=== PATIENT | male | born 1995 ===

== ENCOUNTER 2018-02-04 05:29 | Inpatient (IN) ==
--- NOTE | 2018-02-04 05:37 | Emergency Department Note ---
Disposition Clinical Impression: Suicidal thoughts Disposition: Still a Patient Condition: Good Forms: ED Satisfaction Letter Psych HPI - General Chief Complaint: ED Psychiatric Symptoms Stated Complaint: SI Source: patient, EMS Nursing Notes Reviewed: Yes Vital Signs Reviewed: Yes - History of Present Illness HPI Narrative: 22-year-old male presents emergency department with concern for suicidal thoughts. Patient states that he has had a history of depression stage of 7, has seen a counselor, but quit following up. Patient states that he was in his vehicle in a parking lot having suicidal thoughts. Patient states he has not tried arms oh. He does report having a gun at home. He states that he does not think he would go through with it, but is very concerned as he wants help. - Related Data Allergies Allergy/AdvReac Type Severity Reaction Status Date / Time No Known Allergies Allergy Verified 02/04/18 05:34 All systems ED: reviewed and negative except as stated. Review of Systems: As Per HPI Constitutional: Denies: fever Cardiovascular: Denies: chest pain, palpitations Respiratory: Denies: dyspnea Gastrointestinal: Denies: abdominal pain, nausea, vomiting Musculoskeletal: Denies: back pain Integumentary: Denies: rash Neurological: Denies: headache Psychiatric: Reports: depression, suicidal thoughts. Denies: homicidal thoughts , auditory hallucinations, visual hallucinations Past Medical History - Past Medical History Medical history: Reports: no medical history - Social History Smoking Status: Current every day smoker Smokeless Tobacco Status: No Alcohol use: Reports: occasionally Drug use: Reports: marijuana Physical Exam - General General appearance: alert, in no apparent distress - Head Head exam: atraumatic, normocephalic - Eye Eye exam: Present: conjunctival injection - ENT ENT exam: normal oropharynx, mucous membranes moist - Neck Neck exam: Present: trachea midline - Chest Chest inspection: Present: normal inspection, symmetric chest wall rise - Respiratory Respiratory exam: Present: normal lung sounds bilaterally. Absent: respiratory distress - Cardiovascular Cardiovascular exam: Present: regular rate, normal rhythm, normal heart sounds - Abdominal Exam Abdominal exam: Present: soft, Non-Tender. Absent: distention, guarding, rebound - Extremities Exam Extremities exam: Present: normal capillary refill - Back Exam Back exam: Present: full ROM - Neurological Exam Neurological exam: Present: alert, oriented X3, CN II-XII intact - Psychiatric Psychiatric exam: Present: flat affect - Skin Skin exam: Present: warm, dry, intact, normal color Course Vital Signs Temperature 98.5 F 02/04/18 05:30 Pulse Rate 64 02/04/18 05:30 Respiratory Rate 16 02/04/18 05:30 Blood Pressure 136/106 02/04/18 05:30 O2 Sat by Pulse Oximetry 99 02/04/18 05:30 Temperature 98.5 F 02/04/18 05:30 Pulse Rate 64 02/04/18 05:30 Respiratory Rate 16 02/04/18 05:30 Blood Pressure 136/106 02/04/18 05:30 O2 Sat by Pulse Oximetry 99 02/04/18 05:30 Oxygen Delivery Oxygen Delivery Room Air Psych - MDM Narrative Medical decision making narrative: 22-year-old male presents emergency Department with suicidal thoughts. [place] slip has been placed. Patient has a sitter. Patient is getting medical clearance. Patient's labs are within normal limits. Tox screens are normal. Patient medically cleared. I have called [facility] to come evaluate the patient. They will come down. - Lab Data Result diagrams: 02/04/18 05:45 02/04/18 05:45 Lab Results 02/04/18 02/04/18 02/04/18 Range/Units 05:40 05:40 05:45 WBC 6.6 (4.3-11.1) K/mcL RBC 4.89 (4.19-5.50) M/mcL Hgb 15.4 (12.9-16.9) g/dL Hct 45.3 (37.5-50.1) % MCV 92.6 (83.0-100.0) fL MCH 31.5 (28.0-33.3) pg MCHC 34.0 (31.6-35.5) g/dL RDW 12.9 (11.5-14.5) % Plt Count 342 (140-400) K/mcL MPV 8.8 L (9.4-12.4) fL Immature Gran % 0.5 (0-4) % Seg Neutrophils % 57.6 % Lymphocytes % 32.2 % Monocytes % 7.9 % Eosinophils % 0.9 % Basophils % 0.9 % Neutrophils # 3.8 (1.6-8.9) K/mcL Lymphocytes # 2.1 (0.6-4.6) K/mcL Monocytes # 0.5 (0.0-1.3) K/mcL Eosinophils # 0.1 (0.0-0.6) K/mcL Basophils # 0.1 (0.0-0.2) K/mcL Sodium (136-145) mEq/L Potassium (3.5-5.1) mEq/L Chloride (98-107) mEq/L Carbon Dioxide (23-29) mEq/L BUN (6-20) mg/dL Creatinine (0.70-1.30) mg/dL Est GFR ( Amer) (> 60) Est GFR (Non-Af Amer) (> 60) BUN/Creatinine Ratio (6-26) Glucose (70-105) mg/dL Calculated Osmolality (280-300) Calcium (8.6-10.3) mg/dL Urine Color Yellow (Yellow) Urine Clarity Clear (Clear) Urine pH 6.5 (5.0-8.0) pH Units Ur Specific [place] 1.026 H (1.010-1.025) Urine Protein Negative (Neg-Trace) mg/dL Urine Glucose (UA) Normal (Normal) mg/dL Urine Ketones Negative (Negative) mg/dL Urine Blood Negative (Negative) Urine Nitrite Negative (Negative) Urine Bilirubin Negative (Negative) Urine Urobilinogen Normal (Normal) mg/dL Ur Leukocyte Esterase Negative (Negative) Salicylates (15.0-30.0) mg/dL Urine Opiates Screen Negative (Kfvsrb=479) ng/mL Acetaminophen (10-20) mcg/mL Ur Barbiturates Screen Negative (Azmkva=593) ng/mL Ur Phencyclidine Scrn Negative (Cutoff=25) ng/mL Ur Amphetamines Screen Negative ([place]=8925) ng/mL U Benzodiazepines Scrn Negative (Nqygsi=337) ng/mL Urine Cocaine Screen Negative (Cutoff= 300) ng/mL U Marijuana (THC) Screen Positive H (Cutoff = 50) ng/mL Ethyl Alcohol (Less than 10) mg/dL 02/04/18 Range/Units 05:45 WBC (4.3-11.1) K/mcL RBC (4.19-5.50) M/mcL Hgb (12.9-16.9) g/dL Hct (37.5-50.1) % MCV (83.0-100.0) fL MCH (28.0-33.3) pg MCHC (31.6-35.5) g/dL RDW (11.5-14.5) % Plt Count (140-400) K/mcL MPV (9.4-12.4) fL Immature Gran % (0-4) % Seg Neutrophils % % Lymphocytes % % Monocytes % % Eosinophils % % Basophils % % Neutrophils # (1.6-8.9) K/mcL Lymphocytes # (0.6-4.6) K/mcL Monocytes # (0.0-1.3) K/mcL Eosinophils # (0.0-0.6) K/mcL Basophils # (0.0-0.2) K/mcL Sodium 138 (136-145) mEq/L Potassium 4.2 (3.5-5.1) mEq/L Chloride 104 (98-107) mEq/L Carbon Dioxide 27 (23-29) mEq/L BUN 14 (6-20) mg/dL Creatinine 1.08 (0.70-1.30) mg/dL Est GFR ( Amer) > 60 (> 60) Est GFR (Non-Af Amer) > 60 (> 60) BUN/Creatinine Ratio 13 (6-26) Glucose 103 (70-105) mg/dL Calculated Osmolality 287 (280-300) Calcium 9.8 (8.6-10.3) mg/dL Urine Color (Yellow) Urine Clarity (Clear) Urine pH (5.0-8.0) pH Units Ur Specific [place] (1.010-1.025) Urine Protein (Neg-Trace) mg/dL Urine Glucose (UA) (Normal) mg/dL Urine Ketones (Negative) mg/dL Urine Blood (Negative) Urine Nitrite (Negative) Urine Bilirubin (Negative) Urine Urobilinogen (Normal) mg/dL Ur Leukocyte Esterase (Negative) Salicylates < 2.5 L (15.0-30.0) mg/dL Urine Opiates Screen (Ycyojb=296) ng/mL Acetaminophen < 10 L (10-20) mcg/mL Ur Barbiturates Screen (Cupbgx=332) ng/mL Ur Phencyclidine Scrn (Cutoff=25) ng/mL Ur Amphetamines Screen (Mkyevl=1291) ng/mL U Benzodiazepines Scrn (Ofcsnj=775) ng/mL Urine Cocaine Screen (Cutoff= 300) ng/mL U Marijuana (THC) Screen (Cutoff = 50) ng/mL Ethyl Alcohol < 10 (Less than 10) mg/dL Psychiatric Medical Clearance - Medical Clearance Checklist Medical History: No Social History Section defined Current Vitals: Last Vital Signs Temp 98.5 F 02/04/18 05:30 Pulse 64 02/04/18 05:30 Resp 16 02/04/18 05:30 BP 136/106 02/04/18 05:30 Pulse Ox 99 02/04/18 05:30 Psychiatric Lab Panel: Drug Levels and Toxicity 02/04/18 02/04/18 05:40 05:45 Urine Opiates Screen Negative Acetaminophen < 10 L Ur Barbiturates Screen Negative Ur Phencyclidine Scrn Negative Ur Amphetamines Screen Negative U Benzodiazepines Scrn Negative Urine Cocaine Screen Negative U Marijuana (THC) Screen Positive H Ethyl Alcohol < 10 Abnormal Labs: Abnormal lab results MPV 8.8 fL (9.4-12.4) L 02/04/18 05:45 Ur Specific [place] 1.026 (1.010-1.025) H 02/04/18 05:40 Salicylates < 2.5 mg/dL (15.0-30.0) L 02/04/18 05:45 Acetaminophen < 10 mcg/mL (10-20) L 02/04/18 05:45 U Marijuana (THC) Screen Positive ng/mL (Cutoff = 50) H 02/04/18 05:40 Statement of Medical Clearance: I have evaluated the patient, reviewed diagnostic information, and certify that the patient's medical condition is sufficiently stable that transfer to the psychiatric unit does not pose a significant risk of deterioration.
[2018-02-04 06:01] LABS: Bilirubin,Urine Negative (Negative); Blood,Urine Negative (Negative); Clarity,Urine Clear (Clear); Color,Urine Yellow (Yellow); Glucose,Urine (UA) Normal (Normal); Ketones,Urine Negative (Negative); Leukocyte Esterase,Urine Negative (Negative); Nitrite,Urine Negative (Negative); PH,Urine 6.5 pH Units (5.0-8.0); Protein,Urine Negative (Neg-Trace); Specific Gravity,Urine 1.026 (1.010-1.025); Urobilinogen,Urine Normal (Normal)
[2018-02-04 06:05] LABS: Basophils # 0.1 K/mcL (0.0-0.2); Basophils % 0.9 %; Eosinophils # 0.1 K/mcL (0.0-0.6); Eosinophils % 0.9 %; Hematocrit 45.3 % (37.5-50.1); Hemoglobin 15.4 g/dL (12.9-16.9); Immature Granulocytes % 0.5 % (0-4); Lymphocytes # 2.1 K/mcL (0.6-4.6); Lymphocytes % 32.2 %; Mean Corpuscular Hemoglobin 31.5 pg (28.0-33.3); Mean Corpuscular Volume 92.6 fL (83.0-100.0); Mean Platelet Volume 8.8 fL (9.4-12.4); Monocytes # 0.5 K/mcL (0.0-1.3); Monocytes % 7.9 %; Neutrophils # 3.8 K/mcL (1.6-8.9); Platelet Count 342 K/mcL (140-400); Red Blood Count 4.89 M/mcL (4.19-5.50); Red Cell Distribution Width 12.9 % (11.5-14.5); Segmented Neutrophils % 57.6 %
[2018-02-04 06:24] LABS: Amphetamine Screen,Urine Negative ng/mL (Cutoff=1000); Barbiturate Screen,Urine Negative ng/mL (Cutoff=200); Benzodiazepines Screen,Urine Negative ng/mL (Cutoff=200); Cannabinoid Screen,Urine Positive ng/mL (Cutoff = 50); Cocaine Screen,Urine Negative ng/mL (Cutoff= 300); Opiate Screen,Urine Negative ng/mL (Cutoff=300); Phencyclidine Screen,Urine Negative ng/mL (Cutoff=25)
[2018-02-04 06:26] LABS: Acetaminophen < 10 mcg/mL (10-20); BUN/Creatinine Ratio 13 (6-26); Blood Urea Nitrogen 14 mg/dL (6-20); Calcium 9.8 mg/dL (8.6-10.3); Carbon Dioxide 27 mEq/L (23-29); Chloride 104 mEq/L (98-107); Ethanol < 10 mg/dL (Less than 10); Glucose 103 mg/dL (70-105); Osmolality,Calculated 287 (280-300); Potassium 4.2 mEq/L (3.5-5.1); Salicylate < 2.5 mg/dL (15.0-30.0); Sodium 138 mEq/L (136-145); eGFR For African Americans > 60 (> 60); eGFR For Non-African Americans > 60 (> 60)
--- NOTE | 2018-02-04 07:03 | Emergency Department Note ---
Disposition Clinical Impression: Suicidal thoughts Disposition: Still a Patient Condition: Good Referrals: NONE,PCP [Primary Care Provider] - Forms: ED Satisfaction Letter General Adult HPI - General Chief complaint: ED Psychiatric Symptoms Stated complaint: SI Source: patient, EMS Nursing Notes Reviewed: Yes Vital Signs Reviewed: Yes - History of Present Illness Pain Scale: 0 - Related Data Allergies Allergy/AdvReac Type Severity Reaction Status Date / Time No Known Allergies Allergy Verified 02/04/18 05:34 Constitutional: Denies: fever Cardiovascular: Denies: chest pain, palpitations Respiratory: Denies: dyspnea Gastrointestinal: Denies: abdominal pain, nausea, vomiting Musculoskeletal: Denies: back pain Integumentary: Denies: rash Neurological: Denies: headache Psychiatric: Reports: depression, suicidal thoughts. Denies: homicidal thoughts , auditory hallucinations, visual hallucinations Past Medical History - Past Medical History Medical history: Reports: no medical history - Social History Smoking Status: Current every day smoker Smokeless Tobacco Status: No Alcohol use: Reports: occasionally Drug use: Reports: marijuana Physical Exam - General General appearance: alert, in no apparent distress Course Vital Signs Temperature 98.5 F 02/04/18 05:30 Pulse Rate 64 02/04/18 05:30 Respiratory Rate 16 02/04/18 05:30 Blood Pressure 136/106 02/04/18 05:30 O2 Sat by Pulse Oximetry 99 02/04/18 05:30 Temperature 98.5 F 02/04/18 05:30 Pulse Rate 64 02/04/18 05:30 Respiratory Rate 16 02/04/18 05:30 Blood Pressure 136/106 02/04/18 05:30 O2 Sat by Pulse Oximetry 99 02/04/18 05:30 Oxygen Delivery Oxygen Delivery Room Air Medical Decision Making - Lab Data Result diagrams: 02/04/18 05:45 02/04/18 05:45 Lab Results 02/04/18 02/04/18 02/04/18 Range/Units 05:40 05:40 05:45 WBC 6.6 (4.3-11.1) K/mcL RBC 4.89 (4.19-5.50) M/mcL Hgb 15.4 (12.9-16.9) g/dL Hct 45.3 (37.5-50.1) % MCV 92.6 (83.0-100.0) fL MCH 31.5 (28.0-33.3) pg MCHC 34.0 (31.6-35.5) g/dL RDW 12.9 (11.5-14.5) % Plt Count 342 (140-400) K/mcL MPV 8.8 L (9.4-12.4) fL Immature Gran % 0.5 (0-4) % Seg Neutrophils % 57.6 % Lymphocytes % 32.2 % Monocytes % 7.9 % Eosinophils % 0.9 % Basophils % 0.9 % Neutrophils # 3.8 (1.6-8.9) K/mcL Lymphocytes # 2.1 (0.6-4.6) K/mcL Monocytes # 0.5 (0.0-1.3) K/mcL Eosinophils # 0.1 (0.0-0.6) K/mcL Basophils # 0.1 (0.0-0.2) K/mcL Sodium (136-145) mEq/L Potassium (3.5-5.1) mEq/L Chloride (98-107) mEq/L Carbon Dioxide (23-29) mEq/L BUN (6-20) mg/dL Creatinine (0.70-1.30) mg/dL Est GFR ( Amer) (> 60) Est GFR (Non-Af Amer) (> 60) BUN/Creatinine Ratio (6-26) Glucose (70-105) mg/dL Calculated Osmolality (280-300) Calcium (8.6-10.3) mg/dL Urine Color Yellow (Yellow) Urine Clarity Clear (Clear) Urine pH 6.5 (5.0-8.0) pH Units Ur Specific [place] 1.026 H (1.010-1.025) Urine Protein Negative (Neg-Trace) mg/dL Urine Glucose (UA) Normal (Normal) mg/dL Urine Ketones Negative (Negative) mg/dL Urine Blood Negative (Negative) Urine Nitrite Negative (Negative) Urine Bilirubin Negative (Negative) Urine Urobilinogen Normal (Normal) mg/dL Ur Leukocyte Esterase Negative (Negative) Salicylates (15.0-30.0) mg/dL Urine Opiates Screen Negative (Hidhqf=563) ng/mL Acetaminophen (10-20) mcg/mL Ur Barbiturates Screen Negative (Jghrwk=743) ng/mL Ur Phencyclidine Scrn Negative (Cutoff=25) ng/mL Ur Amphetamines Screen Negative (Vhvwta=6317) ng/mL U Benzodiazepines Scrn Negative (Ucblaf=279) ng/mL Urine Cocaine Screen Negative (Cutoff= 300) ng/mL U Marijuana (THC) Screen Positive H (Cutoff = 50) ng/mL Ethyl Alcohol (Less than 10) mg/dL 02/04/18 Range/Units 05:45 WBC (4.3-11.1) K/mcL RBC (4.19-5.50) M/mcL Hgb (12.9-16.9) g/dL Hct (37.5-50.1) % MCV (83.0-100.0) fL MCH (28.0-33.3) pg MCHC (31.6-35.5) g/dL RDW (11.5-14.5) % Plt Count (140-400) K/mcL MPV (9.4-12.4) fL Immature Gran % (0-4) % Seg Neutrophils % % Lymphocytes % % Monocytes % % Eosinophils % % Basophils % % Neutrophils # (1.6-8.9) K/mcL Lymphocytes # (0.6-4.6) K/mcL Monocytes # (0.0-1.3) K/mcL Eosinophils # (0.0-0.6) K/mcL Basophils # (0.0-0.2) K/mcL Sodium 138 (136-145) mEq/L Potassium 4.2 (3.5-5.1) mEq/L Chloride 104 (98-107) mEq/L Carbon Dioxide 27 (23-29) mEq/L BUN 14 (6-20) mg/dL Creatinine 1.08 (0.70-1.30) mg/dL Est GFR ( Amer) > 60 (> 60) Est GFR (Non-Af Amer) > 60 (> 60) BUN/Creatinine Ratio 13 (6-26) Glucose 103 (70-105) mg/dL Calculated Osmolality 287 (280-300) Calcium 9.8 (8.6-10.3) mg/dL Urine Color (Yellow) Urine Clarity (Clear) Urine pH (5.0-8.0) pH Units Ur Specific [place] (1.010-1.025) Urine Protein (Neg-Trace) mg/dL Urine Glucose (UA) (Normal) mg/dL Urine Ketones (Negative) mg/dL Urine Blood (Negative) Urine Nitrite (Negative) Urine Bilirubin (Negative) Urine Urobilinogen (Normal) mg/dL Ur Leukocyte Esterase (Negative) Salicylates < 2.5 L (15.0-30.0) mg/dL Urine Opiates Screen (Nwdzal=482) ng/mL Acetaminophen < 10 L (10-20) mcg/mL Ur Barbiturates Screen (Dtxjbp=203) ng/mL Ur Phencyclidine Scrn (Cutoff=25) ng/mL Ur Amphetamines Screen (Thyrce=2300) ng/mL U Benzodiazepines Scrn (Moojzx=430) ng/mL Urine Cocaine Screen (Cutoff= 300) ng/mL U Marijuana (THC) Screen (Cutoff = 50) ng/mL Ethyl Alcohol < 10 (Less than 10) mg/dL Attestation Statement - Attestation Attestation: I, Kilo Mayer MD, personally evaluated this patient and discussed their management with the resident physician. I reviewed the resident's note and agree with the documented findings, medical decision making, and plan of care. 22-year-old male presents to the emergency department complaining of suicidal ideations. He denies any specific plans. He states he has had problems with depression since age 9. He is not on any medications but has had some counseling in the past. On examination patient is a well-developed well-nourished well-appearing young male in no acute distress. He is alert and oriented 3. There is no cyanosis or diaphoresis. Breath sounds are clear and equal bilaterally. Heart regular rate and rhythm. Abdomen is soft and nontender with normal bowel sounds. No gross focal neurological deficits. Labs reviewed. Patient medically cleared for psychiatric evaluation. At shift change [facility], Dr. Bush and Dr. Manriquez. Patient awaiting psychiatric consultation.
--- NOTE | 2018-02-04 07:46 | Emergency Department Note ---
Disposition Clinical Impression: Suicidal thoughts, Planning to commit suicide Depression Qualifiers: Depression Type: unspecified Qualified Code(s): F32.9 - Major depressive disorder, single episode, unspecified Disposition: Still a Patient Condition: Good Referrals: NONE,PCP [Primary Care Provider] - Forms: ED Satisfaction Letter General Adult HPI - General Chief complaint: ED Psychiatric Symptoms Stated complaint: SI Time Seen by Provider: 02/04/18 07:45 Source: patient, EMS - History of Present Illness Pain Scale: 0 - Related Data Allergies Allergy/AdvReac Type Severity Reaction Status Date / Time No Known Allergies Allergy Verified 02/04/18 05:34 Constitutional: Denies: fever Cardiovascular: Denies: chest pain, palpitations Respiratory: Denies: dyspnea Gastrointestinal: Denies: abdominal pain, nausea, vomiting Musculoskeletal: Denies: back pain Integumentary: Denies: rash Neurological: Denies: headache Psychiatric: Reports: depression, suicidal thoughts. Denies: homicidal thoughts , auditory hallucinations, visual hallucinations Past Medical History - Past Medical History Medical history: Reports: no medical history - Social History Smoking Status: Current every day smoker Smokeless Tobacco Status: No Alcohol use: Reports: occasionally Drug use: Reports: marijuana Physical Exam - General General appearance: alert, in no apparent distress Course Vital Signs Temperature 98.5 F 02/04/18 05:30 Pulse Rate 64 02/04/18 05:30 Respiratory Rate 16 02/04/18 05:30 Blood Pressure 136/106 02/04/18 05:30 O2 Sat by Pulse Oximetry 99 02/04/18 05:30 Temperature 98.5 F 02/04/18 05:30 Pulse Rate 64 02/04/18 05:30 Respiratory Rate 16 02/04/18 05:30 Blood Pressure 136/106 02/04/18 05:30 O2 Sat by Pulse Oximetry 99 02/04/18 05:30 Oxygen Delivery Oxygen Delivery Room Air Medical Decision Making - Lab Data Result diagrams: 02/04/18 05:45 02/04/18 05:45 Lab Results 02/04/18 02/04/18 02/04/18 Range/Units 05:40 05:40 05:45 WBC 6.6 (4.3-11.1) K/mcL RBC 4.89 (4.19-5.50) M/mcL Hgb 15.4 (12.9-16.9) g/dL Hct 45.3 (37.5-50.1) % MCV 92.6 (83.0-100.0) fL MCH 31.5 (28.0-33.3) pg MCHC 34.0 (31.6-35.5) g/dL RDW 12.9 (11.5-14.5) % Plt Count 342 (140-400) K/mcL MPV 8.8 L (9.4-12.4) fL Immature Gran % 0.5 (0-4) % Seg Neutrophils % 57.6 % Lymphocytes % 32.2 % Monocytes % 7.9 % Eosinophils % 0.9 % Basophils % 0.9 % Neutrophils # 3.8 (1.6-8.9) K/mcL Lymphocytes # 2.1 (0.6-4.6) K/mcL Monocytes # 0.5 (0.0-1.3) K/mcL Eosinophils # 0.1 (0.0-0.6) K/mcL Basophils # 0.1 (0.0-0.2) K/mcL Sodium (136-145) mEq/L Potassium (3.5-5.1) mEq/L Chloride (98-107) mEq/L Carbon Dioxide (23-29) mEq/L BUN (6-20) mg/dL Creatinine (0.70-1.30) mg/dL Est GFR ( Amer) (> 60) Est GFR (Non-Af Amer) (> 60) BUN/Creatinine Ratio (6-26) Glucose (70-105) mg/dL Calculated Osmolality (280-300) Calcium (8.6-10.3) mg/dL Urine Color Yellow (Yellow) Urine Clarity Clear (Clear) Urine pH 6.5 (5.0-8.0) pH Units Ur Specific [place] 1.026 H (1.010-1.025) Urine Protein Negative (Neg-Trace) mg/dL Urine Glucose (UA) Normal (Normal) mg/dL Urine Ketones Negative (Negative) mg/dL Urine Blood Negative (Negative) Urine Nitrite Negative (Negative) Urine Bilirubin Negative (Negative) Urine Urobilinogen Normal (Normal) mg/dL Ur Leukocyte Esterase Negative (Negative) Salicylates (15.0-30.0) mg/dL Urine Opiates Screen Negative ([place]ou[place]=379) ng/mL Acetaminophen (10-20) mcg/mL Ur Barbiturates Screen Negative (Fqphcz=929) ng/mL Ur Phencyclidine Scrn Negative (Cutoff=25) ng/mL Ur Amphetamines Screen Negative (Tkbmru=1048) ng/mL U Benzodiazepines Scrn Negative (Fnwubi=384) ng/mL Urine Cocaine Screen Negative (Cutoff= 300) ng/mL U Marijuana (THC) Screen Positive H (Cutoff = 50) ng/mL Ethyl Alcohol (Less than 10) mg/dL 02/04/18 Range/Units 05:45 WBC (4.3-11.1) K/mcL RBC (4.19-5.50) M/mcL Hgb (12.9-16.9) g/dL Hct (37.5-50.1) % MCV (83.0-100.0) fL MCH (28.0-33.3) pg MCHC (31.6-35.5) g/dL RDW (11.5-14.5) % Plt Count (140-400) K/mcL MPV (9.4-12.4) fL Immature Gran % (0-4) % Seg Neutrophils % % Lymphocytes % % Monocytes % % Eosinophils % % Basophils % % Neutrophils # (1.6-8.9) K/mcL Lymphocytes # (0.6-4.6) K/mcL Monocytes # (0.0-1.3) K/mcL Eosinophils # (0.0-0.6) K/mcL Basophils # (0.0-0.2) K/mcL Sodium 138 (136-145) mEq/L Potassium 4.2 (3.5-5.1) mEq/L Chloride 104 (98-107) mEq/L Carbon Dioxide 27 (23-29) mEq/L BUN 14 (6-20) mg/dL Creatinine 1.08 (0.70-1.30) mg/dL Est GFR ( Amer) > 60 (> 60) Est GFR (Non-Af Amer) > 60 (> 60) BUN/Creatinine Ratio 13 (6-26) Glucose 103 (70-105) mg/dL Calculated Osmolality 287 (280-300) Calcium 9.8 (8.6-10.3) mg/dL Urine Color (Yellow) Urine Clarity (Clear) Urine pH (5.0-8.0) pH Units Ur Specific [place] (1.010-1.025) Urine Protein (Neg-Trace) mg/dL Urine Glucose (UA) (Normal) mg/dL Urine Ketones (Negative) mg/dL Urine Blood (Negative) Urine Nitrite (Negative) Urine Bilirubin (Negative) Urine Urobilinogen (Normal) mg/dL Ur Leukocyte Esterase (Negative) Salicylates < 2.5 L (15.0-30.0) mg/dL Urine Opiates Screen (Dplfby=691) ng/mL Acetaminophen < 10 L (10-20) mcg/mL Ur Barbiturates Screen (Zunilp=180) ng/mL Ur Phencyclidine Scrn (Cutoff=25) ng/mL Ur Amphetamines Screen ([place]ood[place]=2795) ng/mL U Benzodiazepines Scrn (Rqetpp=476) ng/mL Urine Cocaine Screen (Cutoff= 300) ng/mL U Marijuana (THC) Screen (Cutoff = 50) ng/mL Ethyl Alcohol < 10 (Less than 10) mg/dL Attestation Statement - Attestation Attestation: I did see the patient and he is sleeping, color is good, breathing comfortably, awaiting evaluation from psychiatric services. I did discuss and received the patient and transitional care from Dr. Mayer. [id number] I examined this patient and my medical decision-making was reviewed with the PLASTICS PLATER/PA/Advanced Practice Nurse/Resident Physician. I agree with the documented findings, disposition and treatment plan as described except to the extent set forth below. I did speak with psychiatric services and they will admit the patient because he does have depression and suicidal ideation and suicidal plan to use a gun to end his life. [id number]
[2018-02-04] MEDS ORDERED: *HR* LORazepam 1 MG TABLET PO PRN (08:49)
[2018-02-04] MEDS ORDERED: Ibuprofen 400 MG TABLET PO PRN (08:49)
[2018-02-04] MEDS ORDERED: Mag Hydrox/Al Hydrox/Simeth 30 ML UDC PO PRN (08:49)
[2018-02-04] MEDS ORDERED: MOM Conc 10 ML UD.LIQ PO PRN (08:49)
[2018-02-04] MEDS ORDERED: Haloperidol Lactate 5 MG/ML VIAL IM PRN (08:49)
[2018-02-04] MEDS ORDERED: *HR* LORazepam 2 MG/ML VIAL IM PRN (08:49)
--- NOTE | 2018-02-04 12:47 | Psychiatry History & Physical ---
Date of Encounter: 02/04/18 Time of Encounter: 12:30 History of Present Illness Patient Stated Chief Complaint: I am depressed Medicare Admission Attestation: For traditional Medicare patients the provided hospital inpatient services are reasonable and necessary and in the case of services not specified as inpatient -only under 42 CFR 419.22 (n), that they are appropriately provided as inpatient services in accordance 42 CFR 412.3. For Critical Access Hospital the patient may reasonably be expected to be discharged or transferred to a hospital within 96 hours after admission to the Critical Access Hospital. Admitted From: Emergency Dept Plans for Post Hospital Care: Home History of Present Illness: Mr. Butcher is a 22 year old male admit the patient because he does have depression and suicidal ideation and suicidal plan to use a gun to end his life. Pt is a 22 yo ,, male, never , with no children, who presents for depression and anxiety . Pt noted recent exacerbation of depression. Pt states when I came in I thought I wanted to hurt myself. Pt noted I came in because I needed some help I feel much better now. I feel safe and comfortable on the unit. Pt denied any side effects to current medications. Pt was in agreement with current treatment plan. Pt noted that he is doing alright today. Pt noted he slept about 6 hours broken night. Pt noted his appetite is its up and down. Pt rated his depression a 3, on a scale of zero to ten with ten being the worst and zero being none. Pt rate his anxiety a 5, on the same scale. Pt denied any auditory or visual hallucinations. Pt denied any current thoughts to harm himself or anyone else. Pt noted that he lives with is mother and father in [place]. Pt noted that his highest level of education is [employer] with some college. 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 Pt denied any inpt psychiatric hospitalizations. Pt denied any previous suicide attempts. Pt note his cousin completed suicide via ligature. PT denied any family mental health hx. Pt denied TBIs, seizures, HEP C or HIV. No TD noted, AIMS=0 MSE: Alert and Oriented x3 Appearance: appropriately groomed dressed in civilian attire Behavior: Polite, friendly, courteous Speech: fluent, normal tone, normal rate Mood: depressed Affect: mood congruent Thought content: no HI noted, no SI noted, no delusions noted Psychosis: none noted, currently does not appear to be responding to internal stimuli. Thought Process: linear logical, goal directed Judgment: fair. Insight: fair. Assessment/Plan 1.Interval hx 2.Continue current medications 3.Review current labs 4.Pt had an opportunity to ask questions and discuss current treatment plan. 5.Supportive therapy was provided 6.Pt encouraged to consider group or individual therapy 7.Pt was in agreement with treatment plan. 8.Pt was educated on the risks benefits and side effects of current medications. 9. Start sertraline 50 mg PO QAM for mood. Pt was educated on the risks benefits and side-effects of these medications including no medication, pt was in agreement. 10. Start abilify 2 mg PO QAM for mood. Pt was educated on the risks benefits and side-effects of these medications including no medication, pt was in agreement. Past Med Surg Social Fam HX - Past Medical History Medical history: no medical history - Past Psychiatric History Psychiatric history: Reports: depression Family psychiatric history: Yes Family History of Suicide: Completed - Social History Smoking Status: Current every day smoker Smokeless Tobacco Status: No Alcohol use: occasionally Drug use: marijuana - Family History Father History Unknown: Yes Adopted: [place]: [place]yaan Age: 55 Family Member Ethnicity: Non- Twin of Family Member: Yes, Fraternal Living Status: Still Living Hx Family Cardiac Disorders: Yes Hx Family Respiratory Disorders: No Hx Family Cancer: Yes (mother) Hx Family GI Disorders: No Hx Family Genitourinary Disorders: Yes Hx Family Endocrine Disorder: Yes Hx Family Musculoskeletal Disorders: No Hx Family Neuromuscular Disorders: No Hx Family Neurologic Disorders: No Hx Family HEENT Disorders: No Hx Family Autoimmune Disorders: No Hx Family Reproductive Disorders: No Hx Family Psychosocial Disorders: Yes Hx Family Medical Disorders: Yes Medications & Allergies Polymyxn-B/Trimeth Opth Drops [Polytrim Opth Drops] 2 drop RIGHT EYE QID [History] cephALEXin [Keflex] 500 mg PO TID 02/04/18 [History] 3 Allergy/AdvReac Type Severity Reaction Status Date / Time No Known Allergies Allergy Verified 02/04/18 11:11 Review of Systems Constitutional: Denies: fever, chills, weakness, weight change Eyes: Denies: eye pain, vision change Ears, Nose, Throat: Denies: ear pain, throat pain, dental pain, hearing loss, congestion Cardiovascular: Denies: chest pain, palpitations, dyspnea on exertion Respiratory: Denies: cough, dyspnea, wheezes Gastrointestinal: Denies: abdominal pain, nausea, vomiting, diarrhea, constipation Genitourinary male: Denies: urgency, dysuria, frequency, genital lesions Musculoskeletal: Denies: joint swelling, joint pain Integumentary: Denies: rash, lesions, pruritus Neurological: Denies: headache, weakness, numbness, memory loss Psychiatric: Reports: depression, suicidal ideation Endocrine: Denies: fatigue, heat or cold intolerance Hematologic/Lymphatic: Denies: easy bruising, lymphadenopathy Allergic/Immunologic: Denies: urticaria, itchy eyes Exam - HEENT Head exam IM: Present: atraumatic Eye exam IM: Present: EOMI, normal appearance, PERRL ENT exam IM: Present: normal exam - Neurological Neurological exam: Present: CN II-XII intact - Respiratory Respiratory exam IM: Present: CTAB - GI/Abdominal GI/Abdominal exam IM: Present: normal bowel sounds, soft. Absent: tenderness - Extremities Extremities exam IM: Present: full ROM - Skin Skin exam IM: Present: dry, warm - Constitutional Vitals: Temp Pulse Resp BP Pulse Ox 97.5 F L 62 18 147/96 99 02/04/18 09:00 02/04/18 09:00 02/04/18 09:00 02/04/18 09:00 02/04/18 05:30 General appearance: age & developmentally appropriate, well-groomed, well- nourished - Musculoskeletal Gait: normal Station: relaxed Strength & Tone: normal for patient - Psychiatric Patient Orientation: Yes Person, Yes Time, Yes Place Level of alertness: Alert Behavior: calm, cooperative Psychomotor activity: Normal Eye Contact: Maintains Eye Contact Mood Description: Depressed Affect description: congruent with mood, dysphoric Speech Volume: Normal Speech pattern: normal rate, normal rhythm, normal tone, fluent, spontaneous Language & Vocabulary: consistent with education Thought Process: Logical, Linear, Goal Oriented Thought Content: Yes Suicidal ideation, No Homicidal ideation, No Overt delusions Perceptual Disturbances: No Auditory hallucinations, No Visual hallucinations Attention Span Ability: Capable of Focused Attention Memory Description: Grossly Intact Patient Reliability: Reliable Historian Fund of knowledge: Yes abstraction ability, Yes average, Yes aware of current events Intelligence Estimate: Average Judgment: Limited Insight: Partial Results - Labs Labs: Laboratory Last Values WBC 6.6 K/mcL (4.3-11.1) 02/04/18 05:45 RBC 4.89 M/mcL (4.19-5.50) 02/04/18 05:45 Hgb 15.4 g/dL (12.9-16.9) 02/04/18 05:45 Hct 45.3 % (37.5-50.1) 02/04/18 05:45 MCV 92.6 fL (83.0-100.0) 02/04/18 05:45 MCH 31.5 pg (28.0-33.3) 02/04/18 05:45 MCHC 34.0 g/dL (31.6-35.5) 02/04/18 05:45 RDW 12.9 % (11.5-14.5) 02/04/18 05:45 Plt Count 342 K/mcL (140-400) 02/04/18 05:45 MPV 8.8 fL (9.4-12.4) L 02/04/18 05:45 Immature Gran % 0.5 % (0-4) 02/04/18 05:45 Seg Neutrophils % 57.6 % 02/04/18 05:45 Lymphocytes % 32.2 % 02/04/18 05:45 Monocytes % 7.9 % 02/04/18 05:45 Eosinophils % 0.9 % 02/04/18 05:45 Basophils % 0.9 % 02/04/18 05:45 Neutrophils # 3.8 K/mcL (1.6-8.9) 02/04/18 05:45 Lymphocytes # 2.1 K/mcL (0.6-4.6) 02/04/18 05:45 Monocytes # 0.5 K/mcL (0.0-1.3) 02/04/18 05:45 Eosinophils # 0.1 K/mcL (0.0-0.6) 02/04/18 05:45 Basophils # 0.1 K/mcL (0.0-0.2) 02/04/18 05:45 Sodium 138 mEq/L (136-145) 02/04/18 05:45 Potassium 4.2 mEq/L (3.5-5.1) 02/04/18 05:45 Chloride 104 mEq/L (98-107) 02/04/18 05:45 Carbon Dioxide 27 mEq/L (23-29) 02/04/18 05:45 BUN 14 mg/dL (6-20) 02/04/18 05:45 Creatinine 1.08 mg/dL (0.70-1.30) 02/04/18 05:45 Est GFR ( Amer) > 60 (> 60) 02/04/18 05:45 Est GFR (Non-Af Amer) > 60 (> 60) 02/04/18 05:45 BUN/Creatinine Ratio 13 (6-26) 02/04/18 05:45 Glucose 103 mg/dL (70-105) 02/04/18 05:45 Calculated Osmolality 287 (280-300) 02/04/18 05:45 Calcium 9.8 mg/dL (8.6-10.3) 02/04/18 05:45 Urine Color Yellow (Yellow) 02/04/18 05:40 Urine Clarity Clear (Clear) 02/04/18 05:40 Urine pH 6.5 pH Units (5.0-8.0) 02/04/18 05:40 Ur Specific [place] 1.026 (1.010-1.025) H 02/04/18 05:40 Urine Protein Negative mg/dL (Neg-Trace) 02/04/18 05:40 Urine Glucose (UA) Normal mg/dL (Normal) 02/04/18 05:40 Urine Ketones Negative mg/dL (Negative) 02/04/18 05:40 Urine Blood Negative (Negative) 02/04/18 05:40 Urine Nitrite Negative (Negative) 02/04/18 05:40 Urine Bilirubin Negative (Negative) 02/04/18 05:40 Urine Urobilinogen Normal mg/dL (Normal) 02/04/18 05:40 Ur Leukocyte Esterase Negative (Negative) 02/04/18 05:40 Salicylates < 2.5 mg/dL (15.0-30.0) L 02/04/18 05:45 Urine Opiates Screen Negative ng/mL (Ffayyu=049) 02/04/18 05:40 Acetaminophen < 10 mcg/mL (10-20) L 02/04/18 05:45 Ur Barbiturates Screen Negative ng/mL (Roveev=887) 02/04/18 05:40 Ur Phencyclidine Scrn Negative ng/mL (Cutoff=25) 02/04/18 05:40 Ur Amphetamines Screen Negative ng/mL (Rwlqry=7033) 02/04/18 05:40 U Benzodiazepines Scrn Negative ng/mL (Umuhna=052) 02/04/18 05:40 Urine Cocaine Screen Negative ng/mL (Cutoff= 300) 02/04/18 05:40 U Marijuana (THC) Screen Positive ng/mL (Cutoff = 50) H 02/04/18 05:40 Ethyl Alcohol < 10 mg/dL (Less than 10) 02/04/18 05:45 Assessment and Plan (1) Suicidal thoughts Current visit: Yes Status: Acute Plan: Admit inpatient for safety and stabilization, Close observation, Suicide Precautions per unit protocol, Encourage participation in unit milieu, Group Therapy, Monitor sleep, Monitor appetite Risks, benefits, side effects, alternatives discussed w/pt: Yes Patient agreeable to treatment: Yes Plans for Post Hospital Care: Home (2) Planning to commit suicide Current visit: Yes Status: Acute Plan: Admit inpatient for safety and stabilization, Close observation, Suicide Precautions per unit protocol, Encourage participation in unit milieu, Group Therapy, Monitor sleep, Monitor appetite Risks, benefits, side effects, alternatives discussed w/pt: Yes Patient agreeable to treatment: Yes Plans for Post Hospital Care: Home (3) Depression Current visit: Yes Status: Acute Plan: Admit inpatient for safety and stabilization, Close observation, Suicide Precautions per unit protocol, Encourage participation in unit milieu, Group Therapy, Monitor sleep, Monitor appetite Risks, benefits, side effects, alternatives discussed w/pt: Yes Patient agreeable to treatment: Yes Plans for Post Hospital Care: Home Qualifiers: Depression Type: major depressive disorder Major depression recurrence: recurrent Active/Remission status: currently active Major depression episode severity: severe Psychotic features: without psychotic features Qualified Code(s): F33.2 - Major depressive disorder, recurrent severe without psychotic features
[2018-02-04] MEDS: ARIPiprazole 2 MG TABLET PO SCH (14:24)
[2018-02-05] MEDS: ARIPiprazole 2 MG TABLET PO SCH (10:12)
--- NOTE | 2018-02-05 11:11 | Psychiatry Progress Note ---
Date of Encounter: 02/05/18 Time of Encounter: 10:40 Subjective Interval history: Patient seen today for follow up , case d/w staff ,chart reviewed . 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 he has been depress lately more and has suicide plan states i don not know i will do it but the thought is always there , he was thinking about it last night in bed . he has been compliant with medication and denies side effects except mild nausea. he has used marijuana and daily use of less than a gram a day. Patient at present not safe to be discharged as having suicidal thoughts lillian has plan. will dc zoloft as nausea and suicidal thoughts , will start wellbutrin xl 150 mg am as helps with conc and focus and depression. R/O bipolar /ADD Review of Systems Psychiatric: Reports: depression, suicidal ideation Results - Vital Signs Vital Signs: Temp Pulse Resp BP Pulse Ox 98.2 F 67 16 138/88 99 02/04/18 21:00 02/04/18 21:00 02/04/18 21:00 02/04/18 21:00 02/04/18 05:30 Assessment and Plan (1) Suicidal thoughts Current visit: Yes Status: Acute Risks, benefits, side effects, alternatives discussed w/pt: Yes Patient agreeable to treatment: Yes (2) Depression Current visit: Yes Status: Acute Plan: Continue hospitalization, Close observation, Suicide Precautions per unit protocol, Encourage participation in unit milieu, Group Therapy, Monitor sleep, Monitor appetite, Secure weapons, Family/Supportive other meeting Additional Plan: will continue same treatment plan and stabilization. Risks, benefits, side effects, alternatives discussed w/pt: Yes Patient agreeable to treatment: Yes Qualifiers: Depression Type: major depressive disorder Major depression recurrence: single episode Active/Remission status: currently active Major depression episode severity: severe Psychotic features: without psychotic features Qualified Code(s): F32.2 - Major depressive disorder, single episode, severe without psychotic features (3) Cannabis abuse Current visit: Yes Status: Chronic Risks, benefits, side effects, alternatives discussed w/pt: Yes Patient agreeable to treatment: Yes Consult Discharge Plan - Plan Referrals: [facility] [Outside] - 02/22/18 2:00 pm (The above appointment is with Rhianna Pagan for mental health counseling services. Please arrive 10 minutes early to complete the check-in process. Please bring your insurance card (or [employer] award letter) and photo ID. If you are unable to keep this appointment, 24 hour business notice of cancellation is expected. If you miss your new patient appointment with any provider without providing appropriate notice, you cannot be re-scheduled for that service. The above appointment(s) reflects first availability. You may contact the office regularly to check for cancellations that may allow you to be seen sooner. The [facility] is the [facility] in [place], [place]. Please do not use GPS or mapping apps to locate the office, as they will take you to the wrong location. ) [facility] [Outside] - 03/16/18 10:00 am (The above appointment is with Dr. La for outpatient psychiatric assessment and medication management services. Please arrive 15 minutes early to complete paperwork. Please bring your insurance card, photo ID and medications in their original bottles. If you do not have insurance, bring proof of income to apply for the sliding fee scale. If you are unable to keep this appointment, 24 hour business notice of cancellation is expected. The above appointment(s) reflects first availability. You may contact the office regularly to check for cancellations that may allow you to be seen sooner.) Psychiatry Exam - Constitutional Vitals: Temp Pulse Resp BP Pulse Ox 98.2 F 67 16 138/88 99 02/04/18 21:00 02/04/18 21:00 02/04/18 21:00 02/04/18 21:02/04/18 05:30 General appearance: age & developmentally appropriate, well-groomed, well- nourished - Musculoskeletal Gait: normal Station: relaxed Strength & Tone: normal for patient - Psychiatric Patient Orientation: Yes Person, Yes Time, Yes Place Level of alertness: Alert Behavior: cooperative Psychomotor activity: Normal Eye Contact: Minimal Contact Mood Description: Anxious Affect description: constricted Speech Volume: Normal Speech pattern: coherent Language & Vocabulary: consistent with education Thought Process: Racing Thought Content: Yes Suicidal ideation Attention Span Ability: Unable to Sustain Attention Memory Description: Grossly Intact Patient Reliability: Reliable Historian Fund of knowledge: Yes average Intelligence Estimate: Average Judgment: Limited Insight: Partial
[2018-02-05] MEDS: Nicotine 2 MG GUM BC PRN ×2 (11:26→21:42)
[2018-02-05] MEDS: traZODone 50 MG TABLET PO PRN (23:14)
[2018-02-06] MEDS: BuPROPion XL (24 HR) 150 MG TABLET PO SCH (09:33)
[2018-02-06] MEDS: ARIPiprazole 2 MG TABLET PO SCH (09:33)
[2018-02-06] MEDS: Nicotine 2 MG GUM BC PRN ×2 (12:11→23:54)
--- NOTE | 2018-02-06 12:17 | Psychiatry Progress Note ---
Date of Encounter: 02/06/18 Time of Encounter: 11:57 Subjective Interval history: Patient seen today for follow up and case d/w staff patient is compliant and states i ate breakfast and i am talking to people and not to my self. he denies any suicidal ideation this morning but had thoughts last night. he denies side effects and feels medicine helping some. continue same treatment plan at present. Review of Systems Psychiatric: Reports: depression, suicidal ideation Results - Vital Signs Vital Signs: Temp Pulse Resp BP Pulse Ox 97.2 F L 76 14 123/77 99 02/06/18 09:00 02/06/18 09:00 02/06/18 09:00 02/06/18 09:00 02/04/18 05:30 Assessment and Plan (1) Suicidal thoughts Current visit: Yes Status: Acute Risks, benefits, side effects, alternatives discussed w/pt: Yes Patient agreeable to treatment: Yes (2) Depression Current visit: Yes Status: Acute Risks, benefits, side effects, alternatives discussed w/pt: Yes Patient agreeable to treatment: Yes Qualifiers: Depression Type: major depressive disorder Major depression recurrence: single episode Active/Remission status: currently active Major depression episode severity: severe Psychotic features: without psychotic features Qualified Code(s): F32.2 - Major depressive disorder, single episode, severe without psychotic features (3) Cannabis abuse Current visit: Yes Status: Chronic Risks, benefits, side effects, alternatives discussed w/pt: Yes Patient agreeable to treatment: Yes Consult Discharge Plan - Plan Referrals: [facility] [Outside] - 02/22/18 2:00 pm (The above appointment is with Rhianna Pagan for mental health counseling services. Please arrive 10 minutes early to complete the check-in process. Please bring your insurance card (or [facility]) and photo ID. If you are unable to keep this appointment, 24 hour business notice of cancellation is expected. If you miss your new patient appointment with any provider without providing appropriate notice, you cannot be re-scheduled for that service. The above appointment(s) reflects first availability. You may contact the office regularly to check for cancellations that may allow you to be seen sooner. The [facility] is the 1st building behind [facility] in [place], [place]. Please do not use GPS or mapping apps to locate the office, as they will take you to the wrong location. ) [facility] [Outside] - 03/16/18 10:00 am (The above appointment is with Dr. La for outpatient psychiatric assessment and medication management services. Please arrive 15 minutes early to complete paperwork. Please bring your insurance card, photo ID and medications in their original bottles. If you do not have insurance, bring proof of income to apply for the sliding fee scale. If you are unable to keep this appointment, 24 hour business notice of cancellation is expected. The above appointment(s) reflects first availability. You may contact the office regularly to check for cancellations that may allow you to be seen sooner.) Psychiatry Exam - Constitutional Vitals: Temp Pulse Resp BP Pulse Ox 97.2 F L 76 14 123/77 99 02/06/18 09:00 02/06/18 09:00 02/06/18 09:00 02/06/18 09:00 02/04/18 05:30 General appearance: thin - Musculoskeletal Gait: normal Station: other Strength & Tone: normal for patient - Psychiatric Patient Orientation: Yes Person, Yes Time, Yes Place Level of alertness: Alert Behavior: cooperative, anxious Psychomotor activity: Normal Eye Contact: Minimal Contact Mood Description: Depressed, Anxious Affect description: congruent with mood Speech Volume: Soft/Quiet Speech pattern: coherent Language & Vocabulary: consistent with education Thought Process: Intact Thought Content: Yes Suicidal ideation, Yes Guilt Attention Span Ability: Unable to Sustain Attention Memory Description: Grossly Intact Patient Reliability: Reliable Historian Fund of knowledge: Yes average Intelligence Estimate: Average Judgment: Limited Insight: Partial
[2018-02-07] MEDS: traZODone 50 MG TABLET PO PRN (01:13)
[2018-02-07] MEDS: hydrOXYzine pamoate 25 MG CAPSULE PO PRN (02:09)
[2018-02-07] MEDS: ARIPiprazole 2 MG TABLET PO SCH (08:32)
[2018-02-07] MEDS: BuPROPion XL (24 HR) 150 MG TABLET PO SCH ×2 (08:32→20:57)
[2018-02-07] MEDS ORDERED: ARIPiprazole 2 MG TABLET PO SCH (12:55)
--- NOTE | 2018-02-07 12:58 | Psychiatry Progress Note ---
Date of Encounter: 02/07/18 Time of Encounter: 12:20 Subjective Interval history: Patient seen today case d/w treatment team and patient is more social some anxiety but not bad as per him, he is not suicidal and has had no thoughts since yesterday , depression improving , last night could not sleep and had to take prn medicine, he is more verbal now but still has problem with focus and concenteration. will increase abilify and wellbutrin and will start discharge planning. Review of Systems Psychiatric: Reports: depression, suicidal ideation Results - Vital Signs Vital Signs: Temp Pulse Resp BP Pulse Ox 98.1 F 87 18 119/82 99 02/07/18 08:47 02/07/18 08:47 02/07/18 08:47 02/07/18 08:47 02/04/18 05:30 Assessment and Plan (1) Suicidal thoughts Current visit: Yes Status: Acute Plan: Continue hospitalization, Close observation, Suicide Precautions per unit protocol, Encourage participation in unit milieu, Group Therapy, Monitor sleep, Monitor appetite, Family/Supportive other meeting Risks, benefits, side effects, alternatives discussed w/pt: Yes Patient agreeable to treatment: Yes (2) Depression Current visit: Yes Status: Acute Plan: Continue hospitalization, Close observation, Suicide Precautions per unit protocol, Encourage participation in unit milieu, Group Therapy, Monitor sleep, Monitor appetite, Secure weapons, Family/Supportive other meeting Risks, benefits, side effects, alternatives discussed w/pt: Yes Patient agreeable to treatment: Yes Qualifiers: Depression Type: major depressive disorder Major depression recurrence: single episode Active/Remission status: currently active Major depression episode severity: severe Psychotic features: without psychotic features Qualified Code(s): F32.2 - Major depressive disorder, single episode, severe without psychotic features (3) Cannabis abuse Current visit: Yes Status: Chronic Risks, benefits, side effects, alternatives discussed w/pt: Yes Patient agreeable to treatment: Yes Consult Discharge Plan - Plan Referrals: [facility] [Outside] - 02/22/18 2:00 pm (The above appointment is with Rhianna Pagan for mental health counseling services. Please arrive 10 minutes early to complete the check-in process. Please bring your insurance card (or HCAP award letter) and photo ID. If you are unable to keep this appointment, 24 hour business notice of cancellation is expected. If you miss your new patient appointment with any provider without providing appropriate notice, you cannot be re-scheduled for that service. The above appointment(s) reflects first availability. You may contact the office regularly to check for cancellations that may allow you to be seen sooner. The [facility] is the 1st building behind [facility] in [place], [place]. Please do not use GPS or mapping apps to locate the office, as they will take you to the wrong location. ) [facility] [employer] [facility] [place] [Outside] - 03/16/18 10:00 am (The above appointment is with Dr. La for outpatient psychiatric assessment and medication management services. Please arrive 15 minutes early to complete paperwork. Please bring your insurance card, photo ID and medications in their original bottles. If you do not have insurance, bring proof of income to apply for the sliding fee scale. If you are unable to keep this appointment, 24 hour business notice of cancellation is expected. The above appointment(s) reflects first availability. You may contact the office regularly to check for cancellations that may allow you to be seen sooner.) Psychiatry Exam - Constitutional Vitals: Temp Pulse Resp BP Pulse Ox 98.1 F 87 18 119/82 99 02/07/18 08:47 02/07/18 08:47 02/07/18 08:47 02/07/18 08:47 02/04/18 05:30 General appearance: age & developmentally appropriate, well-groomed, well- nourished - Musculoskeletal Gait: normal Station: relaxed Strength & Tone: normal for patient - Psychiatric Patient Orientation: Yes Person, Yes Time, Yes Place Level of alertness: Alert Behavior: cooperative Psychomotor activity: Normal Eye Contact: Maintains Eye Contact Mood Description: Euthymic/stable Affect description: congruent with mood Speech Volume: Normal Speech pattern: coherent Language & Vocabulary: consistent with education Thought Process: Intact Thought Content: Yes Guilt Attention Span Ability: Unable to Sustain Attention Memory Description: Grossly Intact Patient Reliability: Reliable Historian Fund of knowledge: Yes average Intelligence Estimate: Average Judgment: Fair Insight: Full
[2018-02-07] MEDS: Nicotine 2 MG GUM BC PRN ×2 (14:18→21:19)
[2018-02-08] MEDS: hydrOXYzine pamoate 25 MG CAPSULE PO PRN (01:08)
[2018-02-08] MEDS: BuPROPion XL (24 HR) 150 MG TABLET PO SCH (08:59)
[2018-02-08 09:37] VITALS: BP 137/86
--- NOTE | 2018-02-08 09:54 | Discharge Summary ---
Date of Encounter: 02/08/18 Time of Encounter: 09:30 Diagnosis - Discharge Diagnosis (1) Suicidal thoughts Status: Resolved Comments: patient not suicidal or homicidal. has support from family. (2) Depression Status: Acute Comments: patient has shown improvement with medication and structure enviornment. Qualifiers: Depression Type: major depressive disorder Major depression recurrence: single episode Active/Remission status: currently active Major depression episode severity: severe Psychotic features: without psychotic features Qualified Code(s): F32.2 - Major depressive disorder, single episode, severe without psychotic features (3) Cannabis abuse Status: Chronic Comments: patient has been not using lately and has no desire to continue, will seek help if needed thru his counsellor. Medications - Discharge Medications Prescriptions: ARIPiprazole [Abilify] 5 mg PO DAILY #30 tablet BuPROPion XL (24 HR) [Wellbutrin Xl] 150 mg PO DAILY #60 tab.er.24h Polymyxn-B/Trimeth Opth Drops [Polytrim Opth Drops] 2 drop RIGHT EYE QID [History] ARIPiprazole [Abilify] 5 mg PO DAILY #30 tablet 02/08/18 [Rx] BuPROPion XL (24 HR) [Wellbutrin Xl] 150 mg PO DAILY #60 tab.er.24h 02/08/18 [Rx ] 3 Allergy/AdvReac Type Severity Reaction Status Date / Time No Known Allergies Allergy Verified 02/04/18 11:11 Provider Date of admission: 02/04/18 08:18 Primary care physician: PCP NONE Psychiatry Exam - Constitutional Vitals: Temp Pulse Resp BP Pulse Ox 98.1 F 68 16 137/86 99 02/08/18 09:00 02/08/18 09:00 02/08/18 09:00 02/08/18 09:00 02/04/18 05:30 General appearance: age & developmentally appropriate, well-groomed, well- nourished - Musculoskeletal Gait: normal Station: relaxed Strength & Tone: normal for patient - Psychiatric Patient Orientation: Yes Person, Yes Time, Yes Place Level of alertness: Alert Behavior: calm, cooperative Psychomotor activity: Normal Eye Contact: Maintains Eye Contact Mood Description: Euthymic/stable, Anxious Affect description: congruent with mood Speech Volume: Normal Speech pattern: normal rate, normal rhythm, normal tone, coherent Language & Vocabulary: consistent with education Thought Process: Linear, Goal Oriented Thought Content: No Suicidal ideation, No Homicidal ideation, No Overt delusions Perceptual Disturbances: No Auditory hallucinations, No Visual hallucinations Attention Span Ability: Capable of Focused Attention Memory Description: Grossly Intact Patient Reliability: Reliable Historian Fund of knowledge: Yes abstraction ability, Yes aware of current events Intelligence Estimate: Average Judgment: Good Insight: Full Hospital Course Hospital course: Mr. Butcher is a 22 year old male was admitted from ED for suicidal ideation and plan to shoot himself. He has been in counselling in past but no other treatment, he has been depressed for several years but lately was increasing and was having suicidal thoughts almost daily , it was affecting his work and social life , he started using marijuana to decrease his mind racing and to slow down but it did not help so he asked for help when he was thinking about plan to hurt self. Patient was started on medications and given group counselling which included milieu theray,coping skills and psycho education , he was compliant with treatment plan, he was first started with zoloft and his suicidal thoughts increased so switched to wellbutrin to help his depression and concenteration and focus, he felt better , he started having positive thoughts and was verbal and interactive and denies suicidal thoughts, also abilify was added to treatment plan for racing thoughts and depression and it helped him , he denies any side effect. his family is very supportive and he will be followed for counselling and medication management. 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 Time spent discussing smoking cessation with patient: 3 to 10 minutes Does patient wish to continue nicotine replacement upon disc: No (patient has no deire to smoke.) - Time Spent with Patient Total time spent providing and/or coordinating discharge services: Greater than 30 minutes Assessment and Plan - Patient/Caregiver Discharge Instructions Activity: resume usual activities as tolerated Diet: regular diet - Follow up Plan Follow up with: [facility] [Outside] - 02/22/18 2:00 pm (The above appointment is with Rhianna Pagan for mental health counseling services. Please arrive 10 minutes early to complete the check-in process. Please bring your insurance card (or HCAP award letter) and photo ID. If you are unable to keep this appointment, 24 hour business notice of cancellation is expected. If you miss your new patient appointment with any provider without providing appropriate notice, you cannot be re-scheduled for that service. The above appointment(s) reflects first availability. You may contact the office regularly to check for cancellations that may allow you to be seen sooner. The [facility] is the 1st building behind [facility] in [place], [place]. Please do not use GPS or mapping apps to locate the office, as they will take you to the wrong location. ) [facility] [employer] [place] [Outside] - 03/16/18 10:00 am (The above appointment is with Dr. La for outpatient psychiatric assessment and medication management services. Please arrive 15 minutes early to complete paperwork. Please bring your insurance card, photo ID and medications in their original bottles. If you do not have insurance, bring proof of income to apply for the sliding fee scale. If you are unable to keep this appointment, 24 hour business notice of cancellation is expected. The above appointment(s) reflects first availability. You may contact the office regularly to check for cancellations that may allow you to be seen sooner.) Functional capacity at discharge: independent ambulation Overall status at discharge: Stable Disposition: Home, Self-Care Quality - Multiple Antipsychotics Patient discharged on 2 or more antipsychotic medications: No Procedures - Procedures Procedures: Medication Management, Crisis Stabilization, Supportive Therapy, Group Therapy, Psychoeducational Therapy
== END 2018-02-08 11:15 | disposition home or self-care (01) | DRG 885 ==
LOC: EMEROO 05:29 → 1ANU 08:18 → SUATTDRO 08:18 → 1ANU 08:45
PROVIDERS: ADMIT General Practice; ATTEND Psychiatry & Neurology Psychiatry